=== PATIENT | female | born 1970 | race Hispanic/Latino ===

== ENCOUNTER 2018-09-08 10:47 | Emergency (ER) | payer OTHER ==
[~2018-09-08 10:47] MED LIST: FLUT16H NASAL; LOSA50TA25 PO; METF-444 PO; PRAV40TA3 PO; [UNRECOGNIZED DRUG - OTHER] PO
[2018-09-08] MEDS ORDERED: LIDOCAINE 5% TOPICAL PATCH TP ONE (11:16)
[2018-09-08] MEDS ORDERED: KETOROLAC TROMETHAMINE 60 MG/2 ML VIAL ONE (11:16)
== END 2018-09-08 12:24 | disposition home or self-care (01) ==
LOC: EDH 10:47
DX: S16.1XXA Strain of muscle, fascia and tendon at neck level, initial encounter (principal); S39.012A Strain of muscle, fascia and tendon of lower back, initial encounter; I10 Essential (primary) hypertension; E11.9 Type 2 diabetes mellitus without complications; E78.5 Hyperlipidemia, unspecified; V49.49XA Driver injured in collision with other motor vehicles in traffic accident, initial encounter; Y93.89 Activity, other specified; Y92.89 Other specified places as the place of occurrence of the external cause; Y99.8 Other external cause status
CPT/HCPCS: 96372; 99283; J1885

== ENCOUNTER 2019-09-22 09:12 | Emergency (ER) | payer OTHER ==
[~2019-09-22 09:12] MED LIST changes: -LOSA50TA25 PO; +LOSA50TA64 PO
[2019-09-22] MEDS ORDERED: LIDOCAINE 5% TOPICAL PATCH TP ONE (09:31)
[2019-09-22] MEDS ORDERED: CYCLOBENZAPRINE HCL 10 MG TABLET ONE (09:32)
[2019-09-22] MEDS ORDERED: KETOROLAC TROMETHAMINE 15MG/ML ONE (09:32)
== END 2019-09-22 10:18 | disposition home or self-care (01) ==
LOC: EDH 09:12
DX: S16.1XXA Strain of muscle, fascia and tendon at neck level, initial encounter (principal); E11.9 Type 2 diabetes mellitus without complications; E78.5 Hyperlipidemia, unspecified; I10 Essential (primary) hypertension; Z90.49 Acquired absence of other specified parts of digestive tract; Z90.710 Acquired absence of both cervix and uterus; Z87.891 Personal history of nicotine dependence; V49.40XA Driver injured in collision with unspecified motor vehicles in traffic accident, initial encounter; Y93.89 Activity, other specified; Y92.89 Other specified places as the place of occurrence of the external cause; Y99.8 Other external cause status
CPT/HCPCS: 96372; 99283; J1885